=== PATIENT | female | born 1960 ===

== ENCOUNTER 2017-07-23 13:17 | Emergency (ER) | payer SELFPAY ==
[~2017-07-23] VITALS: Ht 170.2 cm; Wt 72.7 kg
[2017-07-23 13:21] VITALS: BP 155/70; PULSE 85; RESP 18; TEMP 98.5; O2SAT 98
== END 2017-07-23 15:00 | disposition left against medical advice (07) ==
LOC: NED 13:17
DX: R07.0 Pain in throat (principal); Z53.21 Procedure and treatment not carried out due to patient leaving prior to being seen by health care provider
CPT/HCPCS: 99281